=== PATIENT | male | born 1960 | race African-American/Black ===

== ENCOUNTER 2020-05-24 15:09 | Inpatient (IN) | payer MEDICARE, MEDICAID ==
[~2020-05-24] VITALS: Ht 175.3 cm; Wt 62.9 kg
[~2020-05-24 15:09] MED LIST: ACET-2161 PO; AMLO5TAB4 PO; ASPI-785 PO; ASPI-986 PO; COR6 PO; FURO-151 PO; LISI-604 PO; LISI40TA4 PO; LOP25 PO; METFORMIN; POTA20LI52 PO; PRAV40TA PO; SIMVASTATIN; SPIR25TA PO; WARF5TAB76 PO
[2020-05-24] MEDS ORDERED: IPRATROPIUM BROMIDE (0.02%) 0.5MG/2.5ML NEB HHN STA (17:24)
[2020-05-24] MEDS ORDERED: ALBUTEROL (0.083%) 2.5MG/3ML NEB HHN STA (17:24)
[2020-05-24 17:25] LABS: BASOPHILS % 1.5 % (0.0-2.0); EOSINOPHILS % 10.9 % (0.0-5.0); HEMATOCRIT. 37.5 % (42.0-52.0); HEMOGLOBIN. 12.6 g/dL (14.0-18.0); LYMPHOCYTES % 15.8 % (20.0-50.0); MEAN CORPUSCULAR HEMOGLOBIN 29.3 pg (28.0-32.0); MEAN CORPUSCULAR VOLUME 87.1 fL (80.0-94.0); MEAN PLATELET VOLUME 8.7 fl (7.4-10.4); MONOCYTES % 13.5 % (2.0-8.0); NEUTROPHILS % 58.3 % (40.0-76.0); PLATELET 195 x1000/uL (130-400); RED CELL DISTRIBUTION WIDTH 16.7 % (11.6-14.6)
[2020-05-24 17:29] LABS: CHLORIDE 104 mEq/L (98-107)
[2020-05-24] MEDS ORDERED: FUROSEMIDE 40MG/4ML VIAL IV ONE (17:30)
[2020-05-24 17:57] LABS: BG BASE EXCESS 0.7 mmol/L (-2.0-2.0); BG CARBOXYHEMOGLOBIN 0.2 % (0.5-1.5); BG HCO3 ACT 24.5 mmol/L (22.0-26.0); BG METHEMOGLOBIN 0.3 % (0.0-1.5); BG OXYHEMOGLOBIN 97.5 % (94.0-97.0); BG PCO2 36.2 mmHg (35.0-45.0); BG PH 7.448 (7.350-7.450); BG PO2 110.4 mmHg (75.0-100.0); BG SAMPLE SITE RIGHT BRACHIAL; BG TOTAL HEMOGLOBIN 12.4 g/dL (12.0-18.0); BG VENT MODE NASAL CANNULA
[2020-05-24] MEDS ORDERED: NITROGLYCERIN OINT 1GM/INCH UDPKT TD ONE (18:00)
[2020-05-24] MEDS ORDERED: ASPIRIN 325MG TABLET PO ONE (18:00)
[2020-05-24 21:00] VITALS: BP 139/105
[2020-05-24 21:02] VITALS: BP 139/105
[2020-05-24] MEDS ORDERED: IPRATROPIUM/ALBUTEROL 0.5-3(2.5)MG/3ML NEB HHN PRN (22:45)
[2020-05-24] MEDS ORDERED: DEXTROSE 50% WATER 50ML SYRINGE IV PRN (22:45)
[2020-05-24] MEDS ORDERED: HYDROCODONE/ACETAMINOPHEN 5/325MG TABLET PO PRN (22:45)
[2020-05-25] VITALS: BP 115/75
[2020-05-25] MEDS ORDERED: ENOXAPARIN 40MG/0.4ML SYR SUBCUT SCH
[2020-05-25] MEDS ORDERED: CARV6.2548 PO (00:35)
[2020-05-25] MEDS ORDERED: LISI-604 PO (00:35)
[2020-05-25] MEDS ORDERED: POTA20TA82 PO (00:35)
[2020-05-25] MEDS: ENOXAPARIN 40MG/0.4ML SYR SUBCUT SCH (01:38)
[2020-05-25 04:00] VITALS: BP 128/86
[2020-05-25] MEDS: BLOOD SUGAR DIAGNOSTIC STRIP TEST SCH ×4 (06:00→20:31)
[2020-05-25] MEDS: METFORMIN HCL 500MG TABLET PO SCH ×2 (06:19→17:41)
[2020-05-25] MEDS: INSULIN LISPRO 100 UNITS/ML SUBCUT SCH ×4 (06:20→20:31)
[2020-05-25 08:00] VITALS: BP 137/107
[2020-05-25] MEDS ORDERED: CARVEDILOL 6.25 MG TABLET PO SCH (09:00)
[2020-05-25] MEDS: FUROSEMIDE 40MG/4ML VIAL IVP SCH ×2 (09:27→22:14)
[2020-05-25] MEDS: LISINOPRIL 20MG TABLET PO SCH (09:28)
[2020-05-25 12:00] VITALS: BP 126/100
[2020-05-25 15:48] LABS: T4 FREE 1.28 ng/dL (0.76-1.46)
[2020-05-25 15:50] LABS: CREATINE KINASE MB FRACTION 2.5 ng/mL (0.5-3.6)
[2020-05-25 16:00] VITALS: BP 116/85
[2020-05-25 20:00] VITALS: BP 98/62
[2020-05-25] MEDS: CARVEDILOL 12.5MG TABLET PO SCH (21:00)
[2020-05-25 23:58] LABS: *AMPHETAMINES SCREEN URINE NEGATIVE (NEGATIVE); *BARBITURATES SCREEN URINE NEGATIVE (NEGATIVE); *BENZODIAZEPINES SCREEN URINE NEGATIVE (NEGATIVE); *COCAINE SCREEN URINE NEGATIVE (NEGATIVE); METHADONE URINE SCREEN NEGATIVE (NEGATIVE); OPIATES URINE SCREEN NEGATIVE (NEGATIVE)
[2020-05-25 23:59] LABS: CANNABINOID URINE SCREEN NEGATIVE (NEGATIVE); PHENCYCLIDINE URINE SCREEN PRESUMTIVE POSITIVE (NEGATIVE)
[2020-05-26] VITALS: BP 131/95
[2020-05-26 00:13] LABS: CREATINE KINASE MB FRACTION 2.3 ng/mL (0.5-3.6)
[2020-05-26 04:00] VITALS: BP 126/90
[2020-05-26] MEDS: BLOOD SUGAR DIAGNOSTIC STRIP TEST SCH ×2 (06:26→11:45)
[2020-05-26 06:47] LABS: CHLORIDE 101 mEq/L (98-107)
[2020-05-26 07:03] LABS: CREATINE KINASE 48 IU/L (39-308)
[2020-05-26 07:05] LABS: CREATINE KINASE MB FRACTION 2.3 ng/mL (0.5-3.6)
[2020-05-26] MEDS: INSULIN LISPRO 100 UNITS/ML SUBCUT SCH ×2 (07:09→12:15)
[2020-05-26 08:00] VITALS: BP 122/84
[2020-05-26] MEDS: FUROSEMIDE 40MG/4ML VIAL IVP SCH (08:53)
[2020-05-26] MEDS: METFORMIN HCL 500MG TABLET PO SCH (08:54)
[2020-05-26] MEDS: CARVEDILOL 12.5MG TABLET PO SCH (08:54)
[2020-05-26] MEDS: LISINOPRIL 20MG TABLET PO SCH (08:54)
[2020-05-26] MEDS: ENOXAPARIN 40MG/0.4ML SYR SUBCUT SCH (08:55)
[2020-05-26] MEDS ORDERED: METF500T PO (11:41)
[2020-05-26] MEDS ORDERED: COR12 PO (11:41)
[2020-05-26] MEDS ORDERED: POTA20TA82 MT (11:41)
[2020-05-26] MEDS ORDERED: FURO-151 MT ×2 (11:41)
[2020-05-26] MEDS ORDERED: LISI-604 PO (11:41)
[2020-05-26 12:00] VITALS: BP 120/79
[2020-05-26 14:38] VITALS: BP 120/79
== END 2020-05-26 15:10 | disposition home or self-care (01) | DRG 291 ==
LOC: ER 15:09 → 5WST 18:06 → EDBEDREQ 18:10 → EDBEDREQTM 18:10 → ENRESERV 19:22
PROVIDERS: ADMIT Internal Medicine; ATTEND Internal Medicine
PROC: 30233N1 Transfusion of Nonautologous Red Blood Cells into Peripheral Vein, Percutaneous Approach (ICD-10-PCS; principal; 2020-05-25)
DX: I11.0 Hypertensive heart disease with heart failure (principal); J96.00 Acute respiratory failure, unspecified whether with hypoxia or hypercapnia; I50.23 Acute on chronic systolic (congestive) heart failure; I42.9 Cardiomyopathy, unspecified; R77.8 Other specified abnormalities of plasma proteins; E11.9 Type 2 diabetes mellitus without complications; Z87.891 Personal history of nicotine dependence; Z95.810 Presence of automatic (implantable) cardiac defibrillator; Z79.82 Long term (current) use of aspirin; Z79.899 Other long term (current) drug therapy; Z79.891 Long term (current) use of opiate analgesic; F10.10 Alcohol abuse, uncomplicated
CPT/HCPCS: 36415; 36600; 71045; 80048; 80053; 80061; 80305; 82375; 82550; 82553; 82805; 82962; 83036; 83880; 84439; 84443; 84484; 85025; 85379; 93005; 93306; 96374; 99291; J1650; J1815; J1940